=== PATIENT | male | born 1985 | race Caucasian/White ===

== ENCOUNTER 2020-03-06 10:00 | Emergency (ER) | payer MEDICAID ==
[~2020-03-06] VITALS: Ht 175.3 cm; Wt 65.9 kg
[~2020-03-06 10:00] MED LIST: CARI350T PO; CYCL-1 PO; HYDR-4383 PO; OMEP20TA5 PO
[2020-03-06] MEDS ORDERED: diazepam 5mg tablet PO ONE (10:30)
[2020-03-06] MEDS ORDERED: naproxen sodium 220mg tablet PO ONE (10:35)
[2020-03-06] MEDS ORDERED: NAPR-56 PO (12:04)
[2020-03-06] MEDS ORDERED: VAL5T PO (12:04)
[2020-03-06 12:44] VITALS: BP 116/75
--- NOTE | 2020-03-06 12:52 | NUR ---
Pt attempted to stand and reports the pain is still severe. Dr. Hoffman notified of the patient's report. Dr. Hoffman spoke with the patient at length regarding his options. Pt verbalized he does not want an IV and does not want an injection of pain medication. Pt is cleared for discharge with prescriptions for pain management at home. Pt to be picked up by his spouse upon discharge from the ED.
[2020-03-06] MEDS ORDERED: DIAZ5TAB4 PO (12:54)
[2020-03-06] MEDS ORDERED: naproxen sodium 220mg tablet PO SCH (20:00)
== END 2020-03-06 13:05 | disposition home or self-care (01) ==
LOC: ER 10:01
DX: S39.012A Strain of muscle, fascia and tendon of lower back, initial encounter (principal); Z72.89 Other problems related to lifestyle; Z79.899 Other long term (current) drug therapy; X50.9XXA Other and unspecified overexertion or strenuous movements or postures, initial encounter; Y93.89 Activity, other specified; Y92.89 Other specified places as the place of occurrence of the external cause; Y99.8 Other external cause status
CPT/HCPCS: 99283

== ENCOUNTER 2024-05-10 14:44 | Emergency (ER) | payer MEDICAID ==
[~2024-05-10] VITALS: Ht 175.3 cm; Wt 61.5 kg
[~2024-05-10 14:44] MED LIST changes: +DIAZ5TAB4 PO; +OMEP20TA43 PO; -OMEP20TA5 PO
[2024-05-10 15:00] VITALS: BP 154/76; PULSE 74; RESP 16; TEMP 98; O2SAT 97
[2024-05-10] MEDS: dexamethasone sod phosphate 10mg/ml inj IM STA (16:03)
[2024-05-10] MEDS: orphenadrine citrate 60mg/2ml inj. IM ONE (16:05)
[2024-05-10] MEDS ORDERED: CYCL-1 PO (16:13)
== END 2024-05-10 17:21 | disposition home or self-care (01) ==
LOC: ER 14:45
DX: M54.50 Low back pain, unspecified (principal)
CPT/HCPCS: 72100; 99283

== ENCOUNTER 2025-01-12 10:33 | Emergency (ER) | payer MEDICAID ==
[~2025-01-12] VITALS: Ht 172.7 cm; Wt 67.0 kg
[2025-01-12 10:42] VITALS: TEMP 98
[2025-01-12] MEDS ORDERED: LIDO700A32 TOP (13:07)
[2025-01-12] MEDS: ketorolac trometh 15mg/ml vial 15 MG/ML ML IM ONE (13:16)
[2025-01-12] MEDS: LIDOcaine 5% patch TP ONE (13:16)
[2025-01-12 13:19] VITALS: BP 105/66; PULSE 59; RESP 16; O2SAT 100
[2025-01-12] MEDS ORDERED: CYCL-1 PO (13:36)
[2025-01-12] MEDS: cyclobenzaprine 10mg tablet PO ONE (13:39)
== END 2025-01-12 13:58 | disposition home or self-care (01) ==
LOC: ER 10:34
DX: M54.42 Lumbago with sciatica, left side (principal); F17.210 Nicotine dependence, cigarettes, uncomplicated; Y90.9 Presence of alcohol in blood, level not specified
CPT/HCPCS: 96372; 99283; J1885